=== PATIENT | female | born 1980 | race African-American/Black ===

== ENCOUNTER 2017-03-29 10:32 | Outpatient (CLI) | payer OTHER ==
[2017-03-29 12:22] LABS: Calc. Creatinine Clearance 0 mL/min (70-130); Estimated GFR-MDRD Greater than 90
[2017-03-29 14:16] LABS: Follow-up Chemistry Comp? YES; Follow-up Result - Chemistry REPORT FAXED
== END 2017-03-29 10:33 | disposition home or self-care (01) ==
LOC: NAVSJIPCSP 10:32
PROVIDERS: ATTEND Surgery
DX: G91.9 Hydrocephalus, unspecified (principal); I10 Essential (primary) hypertension
CPT/HCPCS: 36415; 82565